=== PATIENT | male | born 1935 | race Caucasian/White ===

== ENCOUNTER 2022-09-16 08:37 | Inpatient (IN) | payer BC ==
[~2022-09-16] VITALS: Ht 175.3 cm; Wt 56.7 kg
[2022-09-16] VITALS (15 sets, daily range): BP systolic 101–187
[2022-09-16] MEDS ORDERED: CLOP75TA32 PO (09:03)
[2022-09-16] MEDS ORDERED: DONE10TA44 PO (09:03)
[2022-09-16] MEDS ORDERED: LEVO100T9 PO (09:03)
[2022-09-16] MEDS ORDERED: FURO-149 PO (09:03)
[2022-09-16] MEDS ORDERED: LACT100C2 PO (09:03)
[2022-09-16] MEDS ORDERED: ACET325T PO (09:03)
[2022-09-16] MEDS ORDERED: ALBU2.5V7 INH (09:03)
[2022-09-16] MEDS ORDERED: POLY17PO4 PO (09:03)
[2022-09-16] MEDS ORDERED: IPRA42SP NEB (09:03)
[2022-09-16] MEDS ORDERED: MOME13HF2 INH (09:03)
[2022-09-16] MEDS ORDERED: MEMA5TAB PO (09:03)
[2022-09-16] MEDS ORDERED: ISOS20TA8 PO (09:03)
[2022-09-16] MEDS ORDERED: DOCU-144 PO (09:03)
[2022-09-16] MEDS ORDERED: SSNOVOLOG SUBCUT (09:03)
[2022-09-16] MEDS ORDERED: NIFE90TA24 PO (09:03)
[2022-09-16] MEDS ORDERED: MYCOLOG15 TP (09:03)
[2022-09-16] MEDS ORDERED: LOSA50TA3 PO (09:03)
[2022-09-16] MEDS ORDERED: PRO40 PO (09:03)
[2022-09-16] MEDS ORDERED: LIP80 PO (09:03)
[2022-09-16] MEDS ORDERED: GLIP-201 PO (09:03)
[2022-09-16] MEDS ORDERED: MIRT-91 PO (09:03)
[2022-09-16] MEDS ORDERED: IPRA3AMP9 INH (09:03)
[2022-09-16] MEDS ORDERED: ONDANSETRON HCL 4 MG/2 ML VIAL IVP ONE (09:15)
[2022-09-16 09:54] LABS: BASOPHILS % (AUTO) 0.1 % (0.0-2.0); EOSINOPHILS % (AUTO) 0.1 % (0.0-4.0); HEMATOCRIT 38.6 % (36-54); HEMOGLOBIN 12.2 g/dL (14.0-18.0); LYMPHOCYTES # (AUTO) 0.5 K/uL (1.0-5.5); LYMPHOCYTES % (AUTO) 3.3 % (20.5-51.5); MEAN CORPUSCULAR HEMOGLOBIN 23 pg (27-31); MEAN CORPUSCULAR HGB CONC 32 % (32-36); MEAN CORPUSCULAR VOLUME 72 fL (79.0-98.0); MONOCYTES # (AUTO) 0.4 K/uL (0.0-1.0); NEUTROPHILS # (AUTO) 12.9 K/uL (1.8-7.7); NEUTROPHILS % (AUTO) 93.5 % (40.0-70.0); RED CELL DISTRIBUTION WIDTH 18.1 % (9.0-15.0)
[2022-09-16 09:59] LABS: WHITE BLOOD COUNT (AUTO) 13.8 K/uL (4.8-10.8)
[2022-09-16 10:16] LABS: CALCIUM 9.8 mg/dL (8.4-11.0); CHLORIDE 115 mmol/L (98-107); CREATININE 1.21 mg/dL (0.55-1.30); UREA NITROGEN, BLOOD 15 mg/dL (8-21)
[2022-09-16 10:24] LABS: ALANINE AMINOTRANSFERASE 37 U/L (12-78); ALBUMIN 1.9 g/dL (3.4-4.8); ASPARTATE AMINOTRANSFERASE 20 U/L (10-37); TOTAL BILIRUBIN 0.4 mg/dL (0.0-1.0)
[2022-09-16 10:30] LABS: ANION GAP 3 (5-15)
[2022-09-16 10:33] LABS: GLUCOSE 32 mg/dL (70-99)
[2022-09-16] MEDS ORDERED: DEXTROSE 50% JECT 50 ML DISP.SYRIN ONE (10:38)
[2022-09-16] MEDS ORDERED: DEXTROSE 50% JECT 50 ML DISP.SYRIN IVP ONE (10:45)
[2022-09-16] MEDS ORDERED: KCL 20 mEq in 100 mL (PREMIX) 100 ML IV ONE (10:45)
[2022-09-16] MEDS ORDERED: cefTRIAXone 1 GM IVPB PREMIX 50 ML IV ONE (11:15)
[2022-09-16 12:06] LABS: PLATELET COUNT (AUTO) 113 K/uL (130-430)
[2022-09-16 12:37] LABS: PROTHROMBIN TIME 10.1 SECS (9.5-12.5)
[2022-09-16] MEDS ORDERED: AZITHROMYCIN 500 MG in NS 250 ML IV ONE (13:00)
[2022-09-16] MEDS: POTASSIUM CHLORIDE 40 MEQ in NS 250 ML IV SCH ×2 (13:45→18:17)
[2022-09-16] MEDS: D5/0.45 NS 1,000 ML IV SCH ×2 (13:46→20:20)
[2022-09-16] MEDS: cefTRIAXone 1 GM in D5W 50 ML IV SCH (15:13)
[2022-09-16] MEDS: PIPERACILLIN/TAZO 3.375/DEX-IS 50 ML IV SCH ×2 (18:17→23:49)
[2022-09-16 19:27] LABS: ANION GAP 3 (5-15); CALCIUM 8.5 mg/dL (8.4-11.0); CHLORIDE 117 mmol/L (98-107); CREATININE 1.16 mg/dL (0.55-1.30); GLUCOSE 100 mg/dL (70-99); UREA NITROGEN, BLOOD 15 mg/dL (8-21)
[2022-09-16] MEDS: IPRATROPIUM/ALBUTEROL SULFATE 3 ML AMPUL.NEB (DUONEB) INH SCH (20:20)
[2022-09-16] MEDS ORDERED: KCL 40 mEq in 100 mL (PREMIX) 100 ML IV ONE (21:00)
[2022-09-17] VITALS (21 sets, daily range): BP systolic 114–174
[2022-09-17] MEDS: IPRATROPIUM/ALBUTEROL SULFATE 3 ML AMPUL.NEB (DUONEB) INH SCH ×7 (01:41→23:22)
[2022-09-17] MEDS: D5/0.45 NS 1,000 ML IV SCH ×4 (02:35→20:28)
[2022-09-17] MEDS: PIPERACILLIN/TAZO 3.375/DEX-IS 50 ML IV SCH (05:40)
[2022-09-17 07:23] LABS: ANION GAP 4 (5-15); CALCIUM 7.9 mg/dL (8.4-11.0); CHLORIDE 118 mmol/L (98-107); CREATININE 1.39 mg/dL (0.55-1.30); GLUCOSE 94 mg/dL (70-99); UREA NITROGEN, BLOOD 16 mg/dL (8-21)
[2022-09-17 07:35] LABS: ALANINE AMINOTRANSFERASE 31 U/L (12-78); ALBUMIN 1.6 g/dL (3.4-4.8); ASPARTATE AMINOTRANSFERASE 16 U/L (10-37); CHOLESTEROL 135 mg/dL (<200); HDL CHOLESTEROL 65 mg/dL (>45); THYROID STIMULATING HORMONE 1.92 uIu/mL (0.34-4.82); TOTAL BILIRUBIN 0.4 mg/dL (0.0-1.0); TRIGLYCERIDES 68 mg/dL (30-150)
[2022-09-17 08:13] LABS: BASOPHILS # (AUTO) 0.1 K/uL (0.0-0.2); BASOPHILS % (AUTO) 0.6 % (0.0-2.0); EOSINOPHILS # (AUTO) 0.1 K/uL (0.0-0.4); HEMATOCRIT 30.9 % (36-54); HEMOGLOBIN 9.8 g/dL (14.0-18.0); LYMPHOCYTES # (AUTO) 0.6 K/uL (1.0-5.5); LYMPHOCYTES % (AUTO) 5.2 % (20.5-51.5); MEAN CORPUSCULAR HEMOGLOBIN 23 pg (27-31); MEAN CORPUSCULAR HGB CONC 32 % (32-36); MEAN CORPUSCULAR VOLUME 72 fL (79.0-98.0); MONOCYTES # (AUTO) 0.5 K/uL (0.0-1.0); MONOCYTES % (AUTO) 3.9 % (1.7-9.3); NEUTROPHILS # (AUTO) 10.6 K/uL (1.8-7.7); NEUTROPHILS % (AUTO) 89.3 % (40.0-70.0); RED BLOOD CELL COUNT(AUTO) 4.31 MIL/uL (4.2-6.2); RED CELL DISTRIBUTION WIDTH 17.9 % (9.0-15.0); WHITE BLOOD COUNT (AUTO) 11.8 K/uL (4.8-10.8)
[2022-09-17 08:54] LABS: PROTHROMBIN TIME 10.8 SECS (9.5-12.5)
[2022-09-17 11:30] LABS: PLATELET COUNT (AUTO) 100 K/uL (130-430)
[2022-09-17] MEDS: POTASSIUM CHLORIDE 40 MEQ in D5W 250 ML IV SCH ×2 (12:27→16:54)
[2022-09-17] MEDS ORDERED: AZITHROMYCIN 250 MG TABLET PO ONE (14:15)
[2022-09-17] MEDS ORDERED: ACETYLCYSTEINE 10% 4 ML VIAL (RT) INH PRN (14:30)
[2022-09-17] MEDS ORDERED: FUROSEMIDE 20 MG/2 ML VIAL IVP ONE (14:30)
[2022-09-17] MEDS: cefTRIAXone 1 GM in D5W 50 ML IV SCH (15:13)
[2022-09-17] MEDS: ACETYLCYSTEINE 20% 4 ML VIAL (RT) INH SCH ×3 (17:04→23:22)
[2022-09-17] MEDS: LOSARTAN POTASSIUM 50 MG TABLET (COZAAR) PO SCH (20:25)
[2022-09-17] MEDS: MEMANTINE HCL 5 MG TABLET PO SCH (20:25)
[2022-09-17] MEDS: DONEPEZIL HCL 5 MG TABLET (ARICEPT) PO SCH (20:25)
[2022-09-17] MEDS: MIRTAZAPINE 15 MG TABLET PO SCH (20:25)
[2022-09-17] MEDS: ATORVASTATIN 20 MG TABLET PO SCH (20:26)
[2022-09-18] VITALS (19 sets, daily range): BP systolic 84–177
[2022-09-18] MEDS ORDERED: hydrALAZINE HCL 20 MG/ML VIAL IVP PRN (00:15)
[2022-09-18] MEDS ORDERED: MELATONIN 5 MG TABLET PO ONE (01:36)
[2022-09-18] MEDS ORDERED: MELATONIN 5 MG TABLET PO PRN (01:45)
[2022-09-18] MEDS ORDERED: DIPHENHYDRAMINE INJ 50 MG/ML VIAL ONE (02:07)
[2022-09-18] MEDS: DIPHENHYDRAMINE INJ 50 MG/ML VIAL IVP PRN ×2 (02:09→18:17)
[2022-09-18] MEDS: ACETYLCYSTEINE 20% 4 ML VIAL (RT) INH SCH ×6 (03:00→23:10)
[2022-09-18] MEDS: IPRATROPIUM/ALBUTEROL SULFATE 3 ML AMPUL.NEB (DUONEB) INH SCH ×6 (03:00→23:10)
[2022-09-18] MEDS: D5/0.45 NS 1,000 ML IV SCH ×2 (04:43→19:06)
[2022-09-18 07:00] LABS: BASOPHILS # (AUTO) 0.1 K/uL (0.0-0.2); BASOPHILS % (AUTO) 0.5 % (0.0-2.0); EOSINOPHILS % (AUTO) 0.3 % (0.0-4.0); HEMATOCRIT 30.5 % (36-54); HEMOGLOBIN 9.8 g/dL (14.0-18.0); LYMPHOCYTES # (AUTO) 0.8 K/uL (1.0-5.5); LYMPHOCYTES % (AUTO) 6.6 % (20.5-51.5); MEAN CORPUSCULAR HEMOGLOBIN 23 pg (27-31); MEAN CORPUSCULAR HGB CONC 32 % (32-36); MEAN CORPUSCULAR VOLUME 71 fL (79.0-98.0); MONOCYTES # (AUTO) 0.5 K/uL (0.0-1.0); MONOCYTES % (AUTO) 4.1 % (1.7-9.3); NEUTROPHILS # (AUTO) 10.1 K/uL (1.8-7.7); NEUTROPHILS % (AUTO) 88.5 % (40.0-70.0); PLATELET COUNT (AUTO) 66 K/uL (130-430); RED BLOOD CELL COUNT(AUTO) 4.31 MIL/uL (4.2-6.2); RED CELL DISTRIBUTION WIDTH 17.8 % (9.0-15.0); WHITE BLOOD COUNT (AUTO) 11.4 K/uL (4.8-10.8)
[2022-09-18 07:22] LABS: ANION GAP 7 (5-15); CALCIUM 8.3 mg/dL (8.4-11.0); CHLORIDE 114 mmol/L (98-107); CREATININE 1.03 mg/dL (0.55-1.30); GLUCOSE 97 mg/dL (70-99); UREA NITROGEN, BLOOD 14 mg/dL (8-21)
[2022-09-18] MEDS: LEVOTHYROXINE SODIUM 0.1 MG TABLET PO SCH (07:49)
[2022-09-18] MEDS: DOCUSATE SODIUM 100 MG CAPSULE PO SCH (08:10)
[2022-09-18] MEDS: ISOSORBIDE DINITRATE 20 MG TABLET (ISORDIL) PO SCH (08:11)
[2022-09-18] MEDS: FUROSEMIDE 40 MG TABLET PO SCH (08:11)
[2022-09-18] MEDS: CLOPIDOGREL BISULFATE 75 MG TABLET PO SCH (08:11)
[2022-09-18] MEDS: MEMANTINE HCL 5 MG TABLET PO SCH ×2 (08:11→21:15)
[2022-09-18] MEDS: NIFEDIPINE 90 MG TABLET.SA (PROCARDIA XL 90 MG) PO SCH (08:12)
[2022-09-18] MEDS: AZITHROMYCIN 250 MG TABLET PO SCH (08:12)
[2022-09-18] MEDS: cefTRIAXone 1 GM in D5W 50 ML IV SCH (13:41)
[2022-09-18] MEDS: DONEPEZIL HCL 5 MG TABLET (ARICEPT) PO SCH (21:14)
[2022-09-18] MEDS: LOSARTAN POTASSIUM 50 MG TABLET (COZAAR) PO SCH (21:15)
[2022-09-18] MEDS: MIRTAZAPINE 15 MG TABLET PO SCH (21:15)
[2022-09-18] MEDS: ATORVASTATIN 20 MG TABLET PO SCH (21:15)
[2022-09-19] VITALS (20 sets, daily range): BP systolic 92–167
[2022-09-19] MEDS: ACETYLCYSTEINE 20% 4 ML VIAL (RT) INH SCH ×6 (03:26→23:05)
[2022-09-19] MEDS: IPRATROPIUM/ALBUTEROL SULFATE 3 ML AMPUL.NEB (DUONEB) INH SCH ×6 (03:27→23:05)
[2022-09-19] MEDS: LEVOTHYROXINE SODIUM 0.1 MG TABLET PO SCH (06:14)
[2022-09-19 09:05] LABS: EOSINOPHILS # (AUTO) 0.1 K/uL (0.0-0.4); MONOCYTES # (AUTO) 0.4 K/uL (0.0-1.0)
[2022-09-19 09:14] LABS: BASOPHILS % (AUTO) 0.5 % (0.0-2.0); EOSINOPHILS % (AUTO) 1.1 % (0.0-4.0); HEMATOCRIT 31.1 % (36-54); LYMPHOCYTES # (AUTO) 0.6 K/uL (1.0-5.5); LYMPHOCYTES % (AUTO) 7.4 % (20.5-51.5); MEAN CORPUSCULAR HEMOGLOBIN 23 pg (27-31); MEAN CORPUSCULAR HGB CONC 32 % (32-36); MEAN CORPUSCULAR VOLUME 71 fL (79.0-98.0); MONOCYTES % (AUTO) 4.6 % (1.7-9.3); NEUTROPHILS # (AUTO) 7.6 K/uL (1.8-7.7); NEUTROPHILS % (AUTO) 86.4 % (40.0-70.0); PLATELET COUNT (AUTO) 51 K/uL (130-430); RED CELL DISTRIBUTION WIDTH 17.5 % (9.0-15.0); WHITE BLOOD COUNT (AUTO) 8.8 K/uL (4.8-10.8)
[2022-09-19 09:26] LABS: ALANINE AMINOTRANSFERASE 33 U/L (12-78); ALBUMIN 1.8 g/dL (3.4-4.8); ANION GAP 5 (5-15); ASPARTATE AMINOTRANSFERASE 17 U/L (10-37); CALCIUM 9.5 mg/dL (8.4-11.0); CHLORIDE 111 mmol/L (98-107); CREATININE 0.92 mg/dL (0.55-1.30); GLUCOSE 138 mg/dL (70-99); TOTAL BILIRUBIN 0.6 mg/dL (0.0-1.0); UREA NITROGEN, BLOOD 13 mg/dL (8-21)
[2022-09-19] MEDS: DOCUSATE SODIUM 100 MG CAPSULE PO SCH (09:28)
[2022-09-19] MEDS: MEMANTINE HCL 5 MG TABLET PO SCH ×2 (09:29→21:32)
[2022-09-19] MEDS: CLOPIDOGREL BISULFATE 75 MG TABLET PO SCH (09:29)
[2022-09-19] MEDS: FUROSEMIDE 40 MG TABLET PO SCH (09:29)
[2022-09-19] MEDS: ISOSORBIDE DINITRATE 20 MG TABLET (ISORDIL) PO SCH (09:29)
[2022-09-19] MEDS: NIFEDIPINE 90 MG TABLET.SA (PROCARDIA XL 90 MG) PO SCH (09:30)
[2022-09-19] MEDS: D5/0.45 NS 1,000 ML IV SCH ×2 (09:30→23:25)
[2022-09-19] MEDS: AZITHROMYCIN 250 MG TABLET PO SCH (09:30)
[2022-09-19] MEDS ORDERED: KCL 20 mEq in 100 mL (PREMIX) 100 ML IV ONE ×2 (10:00→12:00)
[2022-09-19] MEDS: cefTRIAXone 1 GM in D5W 50 ML IV SCH (14:28)
[2022-09-19] MEDS: DIPHENHYDRAMINE INJ 50 MG/ML VIAL IVP PRN ×2 (16:47→23:46)
[2022-09-19] MEDS ORDERED: NOREPINEPHRINE BITARTRATE 4 MG in D5W 246 ML IV PRN (17:15)
[2022-09-19] MEDS: DONEPEZIL HCL 5 MG TABLET (ARICEPT) PO SCH (21:31)
[2022-09-19] MEDS: MIRTAZAPINE 15 MG TABLET PO SCH (21:32)
[2022-09-19] MEDS: LOSARTAN POTASSIUM 50 MG TABLET (COZAAR) PO SCH (21:32)
[2022-09-19] MEDS: ATORVASTATIN 20 MG TABLET PO SCH (21:32)
[2022-09-20] VITALS (11 sets, daily range): BP systolic 81–145
[2022-09-20] MEDS: ACETYLCYSTEINE 20% 4 ML VIAL (RT) INH SCH ×3 (03:20→11:24)
[2022-09-20] MEDS: IPRATROPIUM/ALBUTEROL SULFATE 3 ML AMPUL.NEB (DUONEB) INH SCH ×3 (03:20→11:24)
[2022-09-20 06:50] LABS: ANION GAP 4 (5-15); CALCIUM 9.5 mg/dL (8.4-11.0); CHLORIDE 111 mmol/L (98-107); CREATININE 1.07 mg/dL (0.55-1.30); GLUCOSE 160 mg/dL (70-99); UREA NITROGEN, BLOOD 17 mg/dL (8-21)
[2022-09-20 06:53] LABS: BASOPHILS % (AUTO) 0.3 % (0.0-2.0); EOSINOPHILS % (AUTO) 0.4 % (0.0-4.0); HEMATOCRIT 29.2 % (36-54); HEMOGLOBIN 9.7 g/dL (14.0-18.0); LYMPHOCYTES # (AUTO) 0.6 K/uL (1.0-5.5); LYMPHOCYTES % (AUTO) 6.3 % (20.5-51.5); MEAN CORPUSCULAR HEMOGLOBIN 23 pg (27-31); MEAN CORPUSCULAR HGB CONC 33 % (32-36); MEAN CORPUSCULAR VOLUME 70 fL (79.0-98.0); MONOCYTES # (AUTO) 0.4 K/uL (0.0-1.0); MONOCYTES % (AUTO) 4.5 % (1.7-9.3); NEUTROPHILS # (AUTO) 8.7 K/uL (1.8-7.7); NEUTROPHILS % (AUTO) 88.5 % (40.0-70.0); PLATELET COUNT (AUTO) 78 K/uL (130-430); RED BLOOD CELL COUNT(AUTO) 4.16 MIL/uL (4.2-6.2); RED CELL DISTRIBUTION WIDTH 17.2 % (9.0-15.0); WHITE BLOOD COUNT (AUTO) 9.8 K/uL (4.8-10.8)
[2022-09-20] MEDS: LEVOTHYROXINE SODIUM 0.1 MG TABLET PO SCH (07:00)
[2022-09-20] MEDS: MEMANTINE HCL 5 MG TABLET PO SCH (09:22)
[2022-09-20] MEDS: DOCUSATE SODIUM 100 MG CAPSULE PO SCH (09:22)
[2022-09-20] MEDS: FUROSEMIDE 40 MG TABLET PO SCH (09:23)
[2022-09-20] MEDS: AZITHROMYCIN 250 MG TABLET PO SCH (09:23)
[2022-09-20] MEDS: CLOPIDOGREL BISULFATE 75 MG TABLET PO SCH (09:23)
[2022-09-20] MEDS ORDERED: KCL 20 mEq in 100 mL (PREMIX) 100 ML IV ONE (10:30)
[2022-09-20] MEDS: D5/0.45 NS 1,000 ML IV SCH (14:00)
[2022-09-20] MEDS: cefTRIAXone 1 GM in D5W 50 ML IV SCH (14:18)
== END 2022-09-20 19:18 | disposition hospice, home (50) | DRG 871 ==
LOC: SED 08:37 → SIC 10:43 → STU 09-20 10:41
PROVIDERS: ADMIT Internal Medicine; ATTEND Internal Medicine
PROC: 05HY33Z Insertion of Infusion Device into Upper Vein, Percutaneous Approach (ICD-10-PCS; principal; 2022-09-16)
PROC: B54NZZA Ultrasonography of Left Upper Extremity Veins, Guidance (ICD-10-PCS; 2022-09-16)
PROC: 05JYXZZ Inspection of Upper Vein, External Approach (ICD-10-PCS; 2022-09-16)
DX: A41.9 Sepsis, unspecified organism (principal); E43 Unspecified severe protein-calorie malnutrition; J69.0 Pneumonitis due to inhalation of food and vomit; I50.23 Acute on chronic systolic (congestive) heart failure; J96.01 Acute respiratory failure with hypoxia; J44.0 Chronic obstructive pulmonary disease with (acute) lower respiratory infection; Z68.1 Body mass index [BMI] 19.9 or less, adult; I11.0 Hypertensive heart disease with heart failure; E11.649 Type 2 diabetes mellitus with hypoglycemia without coma; F03.90 Unspecified dementia, unspecified severity, without behavioral disturbance, psychotic disturbance, mood disturbance, and anxiety; I25.10 Atherosclerotic heart disease of native coronary artery without angina pectoris; Z20.822 Contact with and (suspected) exposure to COVID-19; R13.10 Dysphagia, unspecified; I48.0 Paroxysmal atrial fibrillation; E03.9 Hypothyroidism, unspecified; E78.5 Hyperlipidemia, unspecified; E87.6 Hypokalemia; F17.200 Nicotine dependence, unspecified, uncomplicated; Z79.899 Other long term (current) drug therapy; Z79.4 Long term (current) use of insulin; Z87.01 Personal history of pneumonia (recurrent)
CPT/HCPCS: 36415; 36600; 71045; 80048; 80053; 80061; 82803-TC; 82962; 83605; 83735; 83880; 84443; 84484; 85025; 85610-TC; 85730-TC; 87040; 87081; 92610-GN; 93005; 93306; 94640; 94760; 96374; 96375; 99291; A6209; J0360; J0456; J0696; J1200; J1940; J2405; J2543; J3480; J7050; J7060; J7608; Q0144